=== PATIENT | male | born 1980 | race Caucasian/White ===

== ENCOUNTER 2024-05-25 10:13 | Inpatient (IN) | payer MEDICAID, OTHER ==
[~2024-05-25] VITALS: Ht 172.7 cm; Wt 105.1 kg
[2024-05-25] MEDS: OXAZEPAM 15MG CAP PO ONE (11:15)
[2024-05-25 11:46] LABS: HEMOGLOBIN 12.6 g/dl (13.5-17.5); MEAN CORPUSCULAR HEMOGLOBIN 30.4 pg (27.0-33.0); MEAN CORPUSCULAR HGB CONC 33.2 g/dl (32.0-36.5); MEAN CORPUSCULAR VOLUME 91.6 fl (80.0-96.0); PLATELET COUNT, AUTOMATED 155 10^3/uL (150-450); RED BLOOD COUNT 4.15 10^6/uL (4.30-6.10); WHITE BLOOD COUNT 5.6 10^3/uL (4.0-10.0)
[2024-05-25 11:49] LABS: AMPHETAMINES LEVEL URINE NEGATIVE (NEGATIVE); BARBITURATES URINE NEGATIVE (NEGATIVE); BENZODIAZEPINES URINE NEGATIVE (NEGATIVE); COCAINE METABOLITE URINE NEGATIVE (NEGATIVE); METHADONE URINE NEGATIVE (NEGATIVE); OPIATES URINE NEGATIVE (NEGATIVE); PHENCYCLIDINE URINE NEGATIVE (NEGATIVE)
[2024-05-25 11:57] LABS: CANNABINOIDS URINE POSITIVE (NEGATIVE)
[2024-05-25 12:08] LABS: ETHYL ALCOHOL (ETHANOL) < 0.003 % (0.000-0.010)
[2024-05-25 12:10] LABS: ALBUMIN 3.3 G/DL (3.2-5.2); ALKALINE PHOSPHATASE 81 U/L (46-116); ALT/SGPT 22 U/L (7.0-40); AST/SGOT 14 U/L (<34); BILIRUBIN,DIRECT < 0.1 MG/DL (<0.4); BILIRUBIN,TOTAL 0.2 MG/DL (0.3-1.2); BLOOD UREA NITROGEN 17 MG/DL (9-23); CALCIUM LEVEL 9.7 MG/DL (8.5-10.1); CARBON DIOXIDE LEVEL 24 MMOL/L (20-31); CHLORIDE LEVEL 110 MMOL/L (98-107); CREATININE FOR GFR 0.76 MG/DL (0.70-1.30); GLOMERULAR FILTRATION RATE > 60.0 (>60); GLUCOSE, FASTING 131 MG/DL (60-100); POTASSIUM SERUM 4.1 MMOL/L (3.5-5.1); SALICYLATE LEVEL < 3.0 MG/DL (<30); SODIUM LEVEL 141 MMOL/L (136-145); TOTAL PROTEIN 5.9 G/DL (5.7-8.2)
[2024-05-25] MEDS ORDERED: OLAN1TAB20 PO (18:44)
[2024-05-25] MEDS ORDERED: NICO4LOZ34 MT (18:44)
[2024-05-25] MEDS ORDERED: GABA-1172 PO (18:44)
[2024-05-25] MEDS ORDERED: ACET-683 PO (18:44)
[2024-05-25] MEDS ORDERED: FOLI1TAB11 PO (18:44)
[2024-05-25] MEDS ORDERED: BENZ-18 PO (18:44)
[2024-05-25] MEDS ORDERED: RISP-105 PO (18:44)
[2024-05-25] MEDS ORDERED: QUET100T2 PO (18:44)
[2024-05-25] MEDS ORDERED: B-1100TA2 PO (18:44)
[2024-05-25] MEDS ORDERED: DIVA250T67 PO (18:44)
[2024-05-25] MEDS ORDERED: TAB-TAB3 PO (18:44)
[2024-05-25] MEDS ORDERED: HOME MED LIST COMPLETE! XX SCH (18:45)
[2024-05-26] MEDS ORDERED: MAALOX 30 ML SUSP *UDC PO PRN (12:30)
[2024-05-26] MEDS ORDERED: MOM 30ML SUSPENSION UDC PO PRN (12:30)
[2024-05-26 14:33] VITALS: BP 158/76; TEMP 97; O2SAT 97
[2024-05-26] MEDS: MULTIVITAMINS/MINERALS THERAP 1 TAB PO SCH (14:52)
[2024-05-26] MEDS: IBUPROFEN 400MG TAB PO PRN (14:52)
[2024-05-26] MEDS: LORazepam 2 MG TAB PO PRN (14:53)
[2024-05-26] MEDS: GABAPENTIN 300 MG CAP PO SCH (15:01)
[2024-05-26 16:33] VITALS: BP 125/70; TEMP 98.8; O2SAT 97
[2024-05-26 18:33] VITALS: BP 119/73; TEMP 97.6; O2SAT 97
[2024-05-26] MEDS: OLANZapine 10 MG TAB PO SCH (21:02)
[2024-05-26] MEDS: traZODone 50 MG TAB PO PRN (21:02)
[2024-05-26] MEDS: DIVALPROEX 250MG TAB PO SCH (21:02)
[2024-05-26 22:00] VITALS: BP 122/68
[2024-05-27 06:00] VITALS: BP 143/74
[2024-05-27 06:02] VITALS: BP 143/74; TEMP 98.2; O2SAT 99
[2024-05-27] MEDS: FOLIC ACID 1MG TAB PO SCH (09:47)
[2024-05-27] MEDS: THIAMINE 100 MG TAB PO SCH (09:47)
[2024-05-27] MEDS: FLUZONE VACCINE TRIVALENT PF(2024-25) 0.5ML SYRINGE IM.IMMUN ONE (12:00)
[2024-05-27] MEDS ORDERED: ALBUTEROL 90 MCG/ACT 8GM HFA INHALER INH PRN (12:45)
[2024-05-27 14:20] VITALS: BP 107/55
[2024-05-27 15:15] VITALS: BP 107/55; TEMP 98.9; O2SAT 98
[2024-05-27] MEDS: chlordiazePOXIDE 25 MG CAP PO SCH (15:38)
[2024-05-27] MEDS: diphenhydrAMINE 25MG CAP PO PRN (16:41)
[2024-05-27] MEDS: NICOTINE 21MG/24HR 1 EA TRANSDERMAL TD PRN (16:53)
[2024-05-27] MEDS: LORazepam 1 MG TAB PO STA (18:17)
[2024-05-27] MEDS: ACETAMINOPHEN 325 MG TAB PO PRN (20:10)
[2024-05-27] MEDS: QUEtiapine FUMARATE 100 MG TAB PO SCH (20:10)
[2024-05-27 21:51] VITALS: BP 129/62
[2024-05-28 06:00] VITALS: BP_SYST 120; BP_SYST 129; BP_DIAS 62; BP_DIAS 68
[2024-05-28 06:26] VITALS: BP 120/68; TEMP 97.7; O2SAT 100
[2024-05-28] MEDS: risperiDONE 2 MG TAB PO SCH (08:56)
[2024-05-28] MEDS ORDERED: RISPERIDONE 1 MG TAB PO SCH (09:00)
[2024-05-28] MEDS: NICOTINE POLACRILEX 2 MG GUM PO PRN (13:53)
[2024-05-28 14:53] VITALS: BP 138/84; TEMP 98.4; O2SAT 98
[2024-05-28] MEDS: ACETAMINOPHEN 500 MG TAB PO ONE (16:28)
[2024-05-28] MEDS: KETOROLAC TROMETHAMINE 10 MG TAB PO ONE (18:04)
[2024-05-28] MEDS: methocarbamoL 500 MG TAB PO PRN (23:29)
[2024-05-29 06:03] VITALS: BP 138/83; TEMP 98; O2SAT 98
[2024-05-29 06:59] LABS: CHOLESTEROL RISK RATIO 3.59 (<5); HDL CHOLESTEROL 44.2 MG/DL (>40); LDL CHOLESTEROL 59.2 MG/DL (<100); NON-HDL-C 114.8 MG/DL
[2024-05-29] MEDS: NAPROXEN 250 MG TAB PO PRN (08:48)
[2024-05-29] MEDS ORDERED: RISP2TAB32 PO (09:49)
== END 2024-05-29 10:05 | disposition home or self-care (01) | DRG 750 ==
LOC: M ED 10:13 → EDBD 10:13 → M ED INP 05-26 12:27 → M PSY 05-26 14:05
PROVIDERS: ADMIT Psychiatry & Neurology Psychiatry; ATTEND Psychiatry & Neurology Psychiatry
DX: F20.9 Schizophrenia, unspecified (principal); F10.231 Alcohol dependence with withdrawal delirium; F43.10 Post-traumatic stress disorder, unspecified; F31.9 Bipolar disorder, unspecified; F10.232 Alcohol dependence with withdrawal with perceptual disturbance; F60.2 Antisocial personality disorder; F12.20 Cannabis dependence, uncomplicated; F17.200 Nicotine dependence, unspecified, uncomplicated; J45.909 Unspecified asthma, uncomplicated; M79.672 Pain in left foot; Z87.820 Personal history of traumatic brain injury; Z76.5 Malingerer [conscious simulation]; Z79.899 Other long term (current) drug therapy; Z88.1 Allergy status to other antibiotic agents; Z88.8 Allergy status to other drugs, medicaments and biological substances; Z63.9 Problem related to primary support group, unspecified

== ENCOUNTER 2024-07-25 11:12 | Inpatient (IN) | payer MEDICAID, OTHER ==
[~2024-07-25 11:12] MED LIST: ACET-683 PO; B-1100TA2 PO; BENZ-18 PO; DIVA250T67 PO; FOLI1TAB11 PO; GABA-1172 PO; NICO4LOZ34 MT; OLAN1TAB20 PO; QUET100T2 PO; RISP-105 PO; RISP2TAB32 PO; TAB-TAB3 PO
[2024-07-25 12:01] LABS: HEMATOCRIT 37.2 % (42.0-52.0); HEMOGLOBIN 12.6 g/dl (13.5-17.5); MEAN CORPUSCULAR HEMOGLOBIN 30.5 pg (27.0-33.0); MEAN CORPUSCULAR HGB CONC 33.9 g/dl (32.0-36.5); MEAN CORPUSCULAR VOLUME 90.1 fl (80.0-96.0); PLATELET COUNT, AUTOMATED 263 10^3/uL (150-450); RED BLOOD COUNT 4.13 10^6/uL (4.30-6.10); WHITE BLOOD COUNT 8.1 10^3/uL (4.0-10.0)
[2024-07-25 12:22] LABS: ALBUMIN 3.5 G/DL (3.2-5.2); ALKALINE PHOSPHATASE 93 U/L (40-129); ALT/SGPT 24 U/L (7.0-40); AST/SGOT 17 U/L (<34); BILIRUBIN,DIRECT < 0.1 MG/DL (<0.4); BILIRUBIN,TOTAL 0.2 MG/DL (0.3-1.2); BLOOD UREA NITROGEN 14 MG/DL (9-23); CALCIUM LEVEL 8.7 MG/DL (8.5-10.1); CARBON DIOXIDE LEVEL 22 MMOL/L (20-31); CHLORIDE LEVEL 105 MMOL/L (98-107); GLOMERULAR FILTRATION RATE > 60.0 (>60); GLUCOSE, FASTING 165 MG/DL (60-100); POTASSIUM SERUM 4.1 MMOL/L (3.5-5.1); SALICYLATE LEVEL < 3.0 MG/DL (<30); SODIUM LEVEL 138 MMOL/L (136-145); TOTAL PROTEIN 6.3 G/DL (5.7-8.2)
[2024-07-25 12:24] LABS: THYROID STIMULATING HORMONE 1.232 uIU/ML (0.55-4.78)
[2024-07-25 12:31] LABS: AMPHETAMINES LEVEL URINE NEGATIVE (NEGATIVE); BARBITURATES URINE NEGATIVE (NEGATIVE); BENZODIAZEPINES URINE NEGATIVE (NEGATIVE); COCAINE METABOLITE URINE NEGATIVE (NEGATIVE); METHADONE URINE NEGATIVE (NEGATIVE); OPIATES URINE NEGATIVE (NEGATIVE); PHENCYCLIDINE URINE NEGATIVE (NEGATIVE)
[2024-07-25 12:38] LABS: CANNABINOIDS URINE POSITIVE (NEGATIVE)
[2024-07-25] MEDS ORDERED: MOM 30ML SUSPENSION UDC PO PRN (14:00)
[2024-07-25] MEDS ORDERED: MAALOX 30 ML SUSP *UDC PO PRN (14:00)
[2024-07-25 14:45] VITALS: BP 134/87; TEMP 97.5; O2SAT 99
[2024-07-25 16:50] VITALS: BP 134/87
[2024-07-25] MEDS ORDERED: LORazepam 2 MG TAB PO PRN (16:50)
[2024-07-25] MEDS: FOLIC ACID 1MG TAB PO SCH (17:17)
[2024-07-25] MEDS: THIAMINE 100 MG TAB PO SCH (17:17)
[2024-07-25] MEDS: MULTIVITAMINS/MINERALS THERAP 1 TAB PO SCH (17:17)
[2024-07-26] VITALS: BP 104/60
[2024-07-26 06:45] VITALS: BP 104/75; TEMP 97.3; O2SAT 97
[2024-07-26 08:12] VITALS: BP 143/77
[2024-07-26] MEDS: ACETAMINOPHEN 325 MG TAB PO PRN (08:49)
[2024-07-26] MEDS: NICOTINE 14 MG/24 HR TRANSDERMAL TD SCH (09:23)
[2024-07-26] MEDS: risperiDONE 2 MG TAB PO SCH (11:36)
[2024-07-26] MEDS: diphenhydrAMINE 25MG CAP PO PRN (13:21)
[2024-07-26 15:00] VITALS: TEMP 97.5; O2SAT 98
[2024-07-26 15:18] VITALS: BP 142/62
[2024-07-26] MEDS: traZODone 50 MG TAB PO PRN (20:07)
[2024-07-26] MEDS ORDERED: HOME MED LIST COMPLETE! XX SCH (21:40)
[2024-07-26] MEDS: GABAPENTIN 300 MG CAP PO SCH (21:45)
[2024-07-26] MEDS: OLANZapine ORAL DISINTEGRATING TAB 5MG PO SCH (21:45)
[2024-07-26] MEDS: QUEtiapine FUMARATE 100 MG TAB PO SCH (21:45)
[2024-07-26 22:00] VITALS: BP 136/74
[2024-07-26] MEDS: IBUPROFEN 400MG TAB PO PRN (22:15)
[2024-07-27 06:00] VITALS: BP 117/71
[2024-07-27 06:34] VITALS: BP 117/71; TEMP 96.6; O2SAT 95
[2024-07-27] MEDS: LORazepam 2 MG TAB PO ONE (13:32)
[2024-07-27] MEDS: diphenhydrAMINE 50MG CAP PO ONE (13:32)
[2024-07-27] MEDS: NICOTINE POLACRILEX 2 MG GUM PO PRN (13:45)
[2024-07-27 17:46] VITALS: BP 150/91; TEMP 98; O2SAT 97
[2024-07-28 06:26] VITALS: BP 136/81; TEMP 97.9; O2SAT 97
[2024-07-28] MEDS ORDERED: Multivitamins PO (09:10)
[2024-07-28] MEDS ORDERED: ZYPR10TA PO (09:10)
[2024-07-28] MEDS ORDERED: NICO2GUM PO (09:10)
[2024-07-28] MEDS ORDERED: TRAZ-252 PO (09:10)
[2024-07-28] MEDS ORDERED: FOLI1TAB11 PO (09:10)
[2024-07-28] MEDS ORDERED: GABA-1172 PO (09:10)
== END 2024-07-28 11:06 | disposition home or self-care (01) | DRG 750 ==
LOC: M ED 11:12 → M ED INP 14:00 → M PSY 14:45
PROVIDERS: ADMIT Psychiatry & Neurology Psychiatry; ATTEND Psychiatry & Neurology Psychiatry
DX: F20.9 Schizophrenia, unspecified (principal); F43.10 Post-traumatic stress disorder, unspecified; F31.9 Bipolar disorder, unspecified; F60.2 Antisocial personality disorder; F68.10 Factitious disorder imposed on self, unspecified; F63.81 Intermittent explosive disorder; Z79.899 Other long term (current) drug therapy; Z88.1 Allergy status to other antibiotic agents; Z88.8 Allergy status to other drugs, medicaments and biological substances